=== PATIENT | male | born 1950 | race Caucasian/White ===

== ENCOUNTER 2025-06-09 15:08 | Inpatient (IN) | payer MEDICARE, MEDICAID ==
[~2025-06-09] VITALS: Ht 180.3 cm; Wt 80.8 kg
--- NOTE | 2025-06-09 15:43 | ED.PDOC ---
[place]. trauma (HPI) HPI Comments This is a 75 year old male presenting to the ED with chief complaint of left hip injury. Patient reports that while at [employer] today, when a worker had been helping him with his vehicle, the tailgate of his truck had hit his head and caused him to fall and injure his left hip. Patient relays that his left leg had undergone an previous injury before and he had been in physical therapy for it. Patient states he called his PT and was advised to come to the ED for evaluation of possible fracture. Patient notes he is able to ambulate with a walker. Patient denies any numbness, weakness, tingling, LOC, or dizziness. Chief Complaint: Fall Injury Time Seen by MD: 15:39 Reviewed notes: Nurses Notes, Medications, Allergies Allergies: Coded Allergies: NO KNOWN ALLERGIES (Unverified , 06/09/25) Information Source: Patient Mode of Arrival: Wheelchair Severity: Moderate Timing: Hours Duration: Since onset Prehospital treatment: None Location: (L) Hip Mechanism: Fall Past Medical History PAST MEDICAL HISTORY: Denies Surgical History: Denies all surgeries Family History Family History: Reviewed,noncontributory to illness Social History Smoker: Non-Smoker Alcohol: Denies ETOH Use Drugs: Denies Drug Use Lives In: Home Constitutional: denies: chills, diaphoresis, fatigue, fever, malaise, sweats, weakness, others EENTM: denies: blurred vision, double vision, ear bleeding, ear discharge, ear drainage, ear pain, ear ringing, eye pain, eye redness, hearing loss, mouth naima n, mouth swelling, nasal discharge, nose bleeding, nose congestion, nose pain, photophobia, tearing, throat pain, throat swelling, voice changes, others Respiratory: denies: cough, hemoptysis, orthopnea, SOB at rest, shortness of breath, SOB with excertion, stridor, wheezing, others Cardiovascular: denies: chest pain, dizzy spells, diaphoresis, Dyspnea on exertion, edema, irregular heart beat, left arm pain, lightheadedness, palpitations, PND, syncope, others Gastrointestinal: denies: abdomen distended, abdominal pain, blood streaked bowels, constipated, diarrhea, dysphagia, difficulty swallowing, hematemesis, melena, nausea, poor appetite, poor fluid intake, rectal bleeding, rectal pain, vomiting, others Genitourinary: denies: burning, dysuria, flank pain, frequency, hematuria, incontinence, penile discharge, penile sore, pain, testicle pain, testicle swelling, urgency, others Neurological: denies: dizziness, fainting, headache, left sided numbness, left sided weakness, numbness, paresthesia, pre-existing deficit, right sided numbness, right sided weakness, seizure, speech problems, tingling, tremors, weakness, others Musculoskeletal: reports: others (Left hip pain); denies: back pain, gout, joint pain, joint swelling, muscle pain, muscle stiffness, neck pain Integumetry: denies: bruises, change in color, change in hair/nails, dryness, laceration, lesions, lumps, rash, wounds, others Allergic/Immunocompromised: denies: Difficulty Healing, Frequent Infections, Hives, Itching, others Hematologic/Lymphatic: denies: anemia, blood clots, easy bleeding, easy bruising, swollen glands, others Endocrine: denies: excessive hunger, excessive sweating, excessive thirst, excessive urination, flushing, intolerance to cold, intolerance to heat, unexplained weight gain, unexplained weight loss, others Psychiatric: denies: anxiety, bipolar disorder, depression, hopeless, panic disorder, schizophrenia, sleepless, suicidal, others All Other Systems: Reviewed and Negative Physical Exam General Appearance: No Apparent Distress, Normal HEENT: Normal ENT Inspection, Pharynx Normal, TMs Normal Neck: Full Range of Motion, Non-Tender, Normal, Normal Inspection Respiratory: Chest Non-Tender, Lungs Clear, No Accessory Muscle Use, No Respiratory Distress, Normal Breath Sounds Cardiovascular: No Edema, No JVD, No Murmur, No Gallop, Normal Peripheral Pulses, Regular Rate/Rhythm Breast Exam: Deferred Gastrointestinal: No Organomegaly, Non Tender, No Pulsatile Mass, Normal Bowel Sounds, Soft Genitalia: Deferred Pelvic: Deferred Rectal: Deferred Extremities: No calf tenderness, Normal capillary refill, Normal inspection, Normal range of motion, Non-tender, No pedal edema Musculoskeletal : Location: Left Extremity Location: Hip Apperance: Tenderness Neurologic: Alert, utility porter II-XII nml as Tested, No Motor Deficits, Normal Affect, Normal Mood, No Sensory Deficits Cerebellar Function: Normal Reflexes: Normal Skin: Dry, Normal Color, Warm Lymphatic: No Adenopathy Was a procedure done? Was a procedure done?: No Differential Diagnosis Multiple Trauma: Fractures, Contusion X-Ray, Labs, Meds, VS Vital Signs Date Time Temp Pulse Resp B/P (MAP) Pulse Ox O2 Delivery O2 Flow Rate FiO2 06/09/25 15:11 98.0 65 16 133/65 99 98.0 X-Ray, Labs, Meds, VS Comment Patient will be admitted for pain control and subcapital femoral head fracture Patient placed in supine position Recommend ortho consult Time of 1ST Reevaluation: 16:38 Reevaluation 1ST: Unchanged Patient Education/Counseling: Diagnosis, Treatment Family Education/Counseling: No Family Present Departure 1 Departure Time of Disposition: 16:46 Impression: Primary Impression: Hip fracture, left Qualified Codes: S72.002A - Fracture of unspecified part of neck of left femur, initial encounter for closed fracture Disposition: ADMITTED INPATIENT Condition: Stable Critical Care Note Critical Care Time?: No Stability Stability form required: No Heart Score Heart Score: Heart Score Response (Comments) Value History N/A 0 EKG N/A 0 Age N/A 0 Risk Factors N/A 0 Troponin N/A 0 Total 0 I personally scribed for FAISAL GUZMAN ([email or web address]) on 06/09/25 at 15:43. Electronically submitted by Julian Hutchins ([email or web address]). FAISAL GUZMAN Jun 09, 2025 15:43
--- NOTE | 2025-06-09 16:17 | DVH ---
CLINICAL INDICATION: fall TECHNIQUE: 3 radiographic views of the left hip were obtained. Comparison: None FINDINGS/IMPRESSION: There is acute impacted subcapital fracture of the left femur. The femoral head remains within the acetabulum. Phleboliths within the pelvis.
[2025-06-09] MEDS: MORPHINE SULFATE 4 MG/ML SYR/VIAL IV ONE (17:10)
[2025-06-09] MEDS: ONDANSETRON HCL 4 MG/2 ML VIAL IV ONE (17:12)
[2025-06-09] MEDS: OXYCODONE W/ ACETAMINOPHEN 5/325MG TABLET PO ONE (19:10)
[2025-06-09] MEDS: HYDROmorphone HCL 2 MG/ML VL/or syr IV ONE (21:28)
[2025-06-09] MEDS ORDERED: MECLIZINE HCL 25 MG TAB PO PRN (21:45)
[2025-06-09] MEDS: SODIUM CHLORIDE 0.9% 1,000 ML IV ONE (21:45)
[2025-06-09 22:00] LABS: Urine Protein, UAD Negative (Negative)
--- NOTE | 2025-06-09 22:25 | DVHHPRES ---
History of Present Illness Resident Creating Document: BRIAN OCAMPO History of Present Illness Patient is a 75-year-old male with past medical history of vertigo, bradycardia, arrhythmia, and hyperlipidemia, presented to [facility] ED with complaint of left hip injury. The patient reports that earlier today, while at [facility], a worker was assisting him with his vehicle when the tailgate of his truck struck him on the head, causing him to fall and injure his left hip. He notes a recent history of a prior injury to the same leg after fall, admit to [facility] for where he had been undergoing physical therapy. After contacting his physical therapist, he was advised to come to the ED for evaluation of a possible fracture. On evaluation in the ED, patient is afebrile, blood pressure is 148/76 mmHg. Hip X-ray shows acute impacted subcapital fracture of the left femur. The patient was placed NPO, started on pain management and IV fluids. Patient is admitted for further evaluation and management. Past Medical History Vertigo, bradycardia, arrhythmia, hyperlipidemia Past Surgical History: None Family History: None Smoke: No ALCOHOL: none Drugs: None Review of Systems Review of Systems Eyes: No Pain, No Vision change, No Conjunctivae inflammation, No Eyelid inflammation, No Other, No Redness ENT: No Ear pain, No Ear discharge, No Nose pain, No Nose discharge, No Nose congestion, No Mouth pain, No Mouth swelling, No Throat pain, No Throat swelling, No Other Cardiovascular: No Chest Pain, No Palpitations, No Orthopnea, No Paroxysmal No Dyspnea, No Edema, No Lt Headedness, No Other Respiratory: No Cough, No Dry, No Shortness of breath, No SOB with exertion, No Wheezing, No Hemoptysis, No Pleuritic Pain, No Sputum, No Other Gastrointestinal: No Nausea, No Vomiting, No Abdominal Pain, No Diarrhea, No Constipation, No Melena, No Hematochezia, No Other Genitourinary: No Dysuria, No Frequency, No Incontinence, No Hematuria, No Retention, No Other Musculoskeletal: No other, No neck pain, No shoulder pain, No arm pain, No back pain, No hand pain, hip pain, leg pain, No foot pain Skin: No Rash, No Lesions, No Jaundice, No Bruising, No Other Allergies: Coded Allergies: NO KNOWN ALLERGIES (Unverified , 06/09/25) Medications Current Medications Medications Dose Ordered Sig/Ryan Route Start Time Stop Time Status Last Admin Dose Admin Meclizine HCl 12.5 mg [id number] PRN PO 06/09/25 21:45 Carisoprodol 350 mg BID PO 06/09/25 22:00 Acetaminophen/ Hydrocodone Bitart 1 tab Q4HPRN PRN PO 06/09/25 21:45 UNV Hydromorphone HCl 0.5 mg Q4HPRN PRN IV 06/09/25 21:45 UNV Exam Vital Signs Vital Signs Date Time Temp Pulse Resp B/P (MAP) Pulse Ox O2 Delivery O2 Flow Rate FiO2 06/09/25 21:28 81 19 181/72 06/09/25 20:52 99 06/09/25 15:11 98.0 98.0 Exam General Appearance: Cooperative. Well developed. Well nourished. NAD Head Exam: Normal inspection Neck Exam: Normal inspection. Non-tender. Normal alignment Pulmonary/Respiratory: Chest non-tender. Clear bilateral breath sounds, no crackles, no wheezing. Cardiovascular/Chest: Regular rate and rhythm. No murmurs. No JVD. Peripheral Pulses: 2+ Radial (R). 2+ Radial (L). 2+ Pedal (R). 2+ Pedal (L) Abdominal Exam: Normal bowel sounds. Soft. normal abdomen, no visible veins, Nontender. No hepatospenomegaly. No masses Ankle Exam: Negative ankle edema Lower extremities: Negative lower extremity edema. Musculoskeletal: Left hip with localized tenderness. No gross deformity noted. Ambulates with walker. Neuro/Mental Status: A&O x4. Coherent. Thoughts/Psych: Normal thought pattern. Appropriate mood and affect. Good judgement and insight Skin Exam: Normal inspection. Normal color. Warm. Dry Labs/Xrays Labs Test 06/09/25 21:11 Range/Units Urine Color Light-yellow Yellow Urine Clarity Clear Clear Urine pH 6.5 5.0-9.0 Urine Specific Baylis 1.009 1.001-1.035 Urine Protein Negative Negative Urine Ketones 2+ H Negative Urine Blood Negative Negative /uL Urine Nitrite Negative Negative Urine Bilirubin Negative Negative Urine Urobilinogen Normal Negative mg/dL Urine Leukocyte Esterase Negative Negative /uL Urine RBC 1 0 - 3 /hpf Urine Microscopic WBC < 1 0-3 /HPF Urine Squamous Epithelial Cells None seen <5 /hpf Urine Bacteria None seen None Seen /hpf Urine Hyaline Casts Few 0 - 2 /lpf Urine Glucose Normal Normal mg/dL SEPSIS Sepsis Screen Date sepsis recognized/suspect: Jun 09, 2025 Time Sepsis recognized/suspect: 1510 Recent Procedure: No On Antibiotic Therapy: No Respiratory Rate >20: No Heart Rate >90: No Temp<36 C (96.8 F) or >38.3 C: No SBP <90 or MAP <65 mmHG: No New Acute Mental Status Change: No Is the patient on CPAP, BIPAP,: No Physician Orders L Hip Complete Xray (06/09/25 15:33) * Orthopedic Consult (06/09/25 16:48) Admit (06/09/25 21:45) Allergies (06/09/25 21:45) Code Status (06/09/25 21:45) Complete Blood Count (06/09/25 21:45) Condition: Fair (06/09/25 21:45) Stat Ekg For Chest Pain (06/09/25 21:45) Notify Md Of Changes From Base (06/09/25 21:45) Fire Sprinkler Fitter For 24 Hours (06/09/25 21:45) Emergency Dysrhythmia Protocol (06/09/25 21:45) Rhythm Strips Once Every Shift (06/09/25 21:45) Sodium Chloride 0.9% (06/09/25 21:45) Hepatic Panel (06/09/25 21:45) Head Without Contrast (06/09/25 21:45) Meclizine Tablet (Antivert Tablet) (06/09/25 21:45) Carisoprodol Tablet (Soma Tablet) (06/09/25 22:00) PTPTT (06/09/25 21:45) Type And Screen (06/09/25 21:45) Chest Xray 1 View (06/09/25 21:45) Hydrocodone-Acet 5/325mg Tab (Partridge 5/32 (06/09/25 21:45) Hydromorphone Injection (Dilaudid Inject (06/09/25 21:45) Hydromorphone Injection (Dilaudid Inject (06/09/25 21:45) Npo Except For Medications (06/09/25 21:45) Npo (Nothing By Mouth) Diet (06/09/25 Breakfast) Magnesium (06/09/25 21:45) Comprehensive Metabolic Panel (06/09/25 21:45) Vital Signs Date Time Temp Pulse Resp B/P (MAP) Pulse Ox O2 Delivery O2 Flow Rate FiO2 06/09/25 21:28 81 19 181/72 06/09/25 20:52 74 17 148/76 (100) 99 06/09/25 20:51 72 17 141/78 (99) 98 06/09/25 20:50 85 18 182/81 (114) 98 06/09/25 19:07 64 16 162/81 (108) 100 06/09/25 17:10 62 20 102/69 06/09/25 15:11 98.0 65 16 133/65 99 98.0 Medications Medications Dose Ordered Sig/Ryan Route Start Time Stop Time Status Last Admin Dose Admin Hydromorphone HCl 0.5 mg ONCE ONCE IV 06/09/25 21:00 06/09/25 21:01 DC 06/09/25 21:28 0.5 MG Morphine Sulfate 4 mg ONCE ONCE IV 06/09/25 17:00 06/09/25 17:01 DC 06/09/25 17:10 4 MG Ondansetron HCl 4 mg ONCE ONCE IV 06/09/25 17:15 06/09/25 17:16 DC 06/09/25 17:12 4 MG Oxycodone/ Acetaminophen 1 tab ONCE ONCE PO 06/09/25 19:00 06/09/25 19:01 DC 06/09/25 19:10 1 TAB Assessment/Plan Assessment/Plan Left femoral fracture Intractable hip pain due to above Hip X-ray: There is acute impacted subcapital fracture of the left femur. The femoral head remains within the acetabulum. Phleboliths within the pelvis. Chest X-ray: The right costophrenic angles excluded from field of view. There is prominence of the interstitial markings. Unremarkable cardiomediastinal silhouette. No pleural effusion or pneumothorax. No acute osseous abnormality. pain management with Morphine, Partridge and Dilaudid Orthopedic consult IV NS 125 MLS/HR Acute mild traumatic brain injury, likely concussion Meningioma Head CT: No acute territorial infarct, intracranial hemorrhage, or mass effect. Age-related involutional changes. Chronic microvascular changes. 15 mm probable meningioma as detailed, which may be confirmed with a nonemergent contrast-enha nced MRI of the brain as clinically indicated. Hypertensive urgency Monitor BP Vertigo Meclizine 12.5 MG PO q12h prn Diet: NPO Goals of care: Full code, discussed for >30 minutes on 06/09/25 Plan discussed with patient Plan discussed with Dr. Garza Plan discussed with: Patient My Orders Orders - BRIAN OCAMPO RESIDENT Procedure Category Date Status Time Admit ADMIT 06/09/25 Transmitted 21:45 Allergies [facility] 06/09/25 In Process 21:45 Code Status CODE 06/09/25 Transmitted 21:45 Complete Blood Count LAB 06/09/25 Logged 21:45 Condition: Fair [facility] 06/09/25 In Process 21:45 Stat Ekg For Chest [facility] 06/09/25 In Process Pain 21:45 Notify Md Of Changes [facility] 06/09/25 In Process From Base 21:45 Fire Sprinkler Fitter For [facility] 06/09/25 In Process 24 Hours 21:45 Emergency Dysrhythmia [facility] 06/09/25 In Process Protocol 21:45 Rhythm Strips Once [facility] 06/09/25 In Process Every Shift 21:45 Sodium Chloride 0.9% PHA 06/09/25 In Process 21:45 Hepatic Panel LAB 06/09/25 Logged 21:[address] 06/09/25 Logged 21:45 Meclizine Tablet PHA 06/09/25 Logged (Antivert Tablet) 21:45 Carisoprodol Tablet PHA 06/09/25 Logged (Soma Tablet) 22:00 PTPTT LAB 06/09/25 Logged 21:45 Type And Screen BBK 06/09/25 Logged 21:45 Chest Xray 1 View XY 06/09/25 Logged 21:45 Hydrocodone-Acet PHA 06/09/25 Logged 5/325mg Tab (Partridge 21:45 Hydromorphone PHA 06/09/25 Logged Injection (Dilaudid 21:45 Hydromorphone PHA 06/09/25 Logged Injection (Dilaudid 21:45 Npo Except For DORY 06/09/25 In Process Medications 21:45 Npo (Nothing By DIET 06/09/25 Transmitted Mouth) Diet Breakfast Magnesium LAB 06/09/25 Logged 21:45 Comprehensive LAB 06/09/25 Logged Metabolic Panel 21:45 Date of Service: Jun 09, 2025 Billing Provider: JESSICA GARZA MD Common Visit Codes: 90044-[id number] INP/OBS CARE (HIGH) Secondary Visit Codes: [id number] CARE PLAN 30 MINUTES BRINA OCAMPO RESIDENT Jun 09, 2025 22:25
[2025-06-09 22:51] LABS: Hematocrit 41.9 % (41.0-53.0); Hemoglobin 14.2 g/dL (13.5-17.5); Mean Corpuscular Hemoglobin 33.6 pg (28.0-32.0); Mean Corpuscular Volume 99.1 fL (80.0-100.0); Nucleated Red Blood Cells % 0.0 %
[2025-06-09 23:09] LABS: Alanine Aminotransferase 38 U/L (7-40); Albumin 4.1 g/dL (3.2-4.8); Alkaline Phosphatase 72 U/L (46-116); BUN/Creatinine Ratio 13.7 (10.0-20.0); Bilirubin, Direct 0.3 mg/dL (<0.3); Bilirubin, Total 1.0 mg/dL (0.2-1.0); Blood Urea Nitrogen 17 mg/dL (9-23); Calcium 8.9 mg/dL (8.7-10.4); Carbon Dioxide 25 mmol/L (20-31); Glucose 94 mg/dL (74-106); Magnesium 2.4 mg/dL (1.6-2.6); Potassium 4.3 mmol/L (3.5-5.1); Sodium 145 mmol/L (136-145); Total Protein 6.8 g/dL (5.7-8.2)
[2025-06-09 23:18] LABS: INR 1.12 (0.9-1.15); Partial Thromboplastin Time 33.9 SEC (24.5-34.5); Prothrombin Time 11.7 sec (9.3-11.8)
[2025-06-09 23:19] LABS: Anion Gap 10 (5-15)
[2025-06-09 23:20] LABS: Chloride 110 mmol/L (98-107)
[2025-06-10] VITALS (8 sets, daily range): BP systolic 117–155; BP diastolic 60–71; PULSE 63–79; RESP 17–19; TEMP 98.7–100.5; O2SAT 91–95
--- NOTE | 2025-06-10 00:17 | DVH ---
EXAM: CT HEAD WITHOUT CONTRAST INDICATION: head trauma TECHNIQUE: CT of the head without intravenous contrast. Radiation Dose : 1. Head: CT Dose: CTDI volume is 59.04 mGy. Dose-length product is 1064.46 mGy*cm The dose indicators for CT are the volume Computed Tomography (CT) Dose Index (CTDIvol) and the Dose Length Product (DLP), and are measured in units of mGy and mGy-cm, respectively. These indicators are not patient dose, but values generated from the CT scanner acquisition factors. The report includes radiation exposure data for exposures received during this examination. COMPARISON: None FINDINGS: No acute territorial infarct, intracranial hemorrhage, or mass effect. 15 mm partially calcified extra-axial mass contouring the right posterior cerebral convexity. There are global involutional changes with compensatory prominence of the ventricles and sulci. Patchy periventricular and subcortical white matter hypoattenuation is nonspecific but may be related to small vessel ischemic disease. The orbits are normal. Polyp versus retention cyst within the left maxillary antrum. The osseous structures are unremarkable. IMPRESSION: 1. No acute territorial infarct, intracranial hemorrhage, or mass effect. 2. Age-related involutional changes. Chronic microvascular changes. 3. 15 mm probable meningioma as detailed, which may be confirmed with a nonemergent contrast-enhanced MRI of the brain as clinically indicated. Radiation optimization: All CT scans at this facility use at least one of these dose optimization techniques: automated exposure control mA and/or kV adjustment per patient size (includes targeted exams where dose is matched to clinical indication) or iterative reconstruction.
[2025-06-10] MEDS: CARISOPRODOL 350 MG TAB PO SCH (00:40)
--- NOTE | 2025-06-10 01:01 | DVH ---
CHEST RADIOGRAPH Indication: chest pain Technique: Single frontal view of the chest was obtained Comparison: None FINDINGS/IMPRESSION: The right costophrenic angles excluded from field of view. There is prominence of the interstitial markings. Unremarkable cardiomediastinal silhouette. No pleural effusion or pneumothorax. No acute osseous abnormality.
[2025-06-10] MEDS: HYDROmorphone HCL 2 MG/ML VL/or syr IV ONE (01:28)
[2025-06-10] MEDS: HYDROmorphone HCL 2 MG/ML VL/or syr IV PRN (09:38)
--- NOTE | 2025-06-10 13:14 | DVHINCON2 ---
Consult Note Consult Consult Note History of Present Illness: The patient is an elderly individual who presents with a one-day history of left hip pain following a ground-level fall. The patient was brought to the Emergency Department by EMS. X-rays of the left hip were obtained, revealing a left subcapital femoral neck fracture. The patient denies any preceding dizziness, syncope, or head injury. Pain is localized to the left groin region and worsens with movement. No distal numbness or tingling reported. Past Medical History: Irregular arrhythmia under care of Dr. Adam (Cardiology) No known history of diabetes mellitus, smoking, or anticoagulant use Medications: None reported related to anticoagulation Allergies: No known drug allergies (NKDA) Physical Examination: General: Alert, oriented, in mild distress secondary to pain. Left Lower Extremity: Inspection: No open wounds or deformity noted. Palpation: Tenderness over the left groin and proximal thigh. Range of Motion: Painful and limited at the left hip; knee and ankle range of motion full and intact. Neurovascular: Grossly intact. Distal pulses palpable. Capillary refill <2 seconds. Sensation intact to light touch. Other Extremities: Within normal limits. Imaging: X-ray of Left Hip: Subcapital femoral neck fracture identified. CT Hip: Ordered for further evaluation and surgical planning. Echocardiogram: Ordered for preoperative cardiac clearance. Assessment: Left subcapital femoral neck fracture, status post ground-level fall. Plan: NWB till surgery 1. Surgical Management: Proceed with operative perc pinning fixation versus arthroplasty. Planned procedures: Percutaneous pinning versus hemiarthroplasty versus total hip arthroplasty (pending CT findings and intraoperative assessment). 2. Preoperative Orders: NPO after midnight. Cardiac clearance with echocardiogram due to arrhythmia history. Pain management as per protocol. 3. Consults: Discussed case with Dr. Leary (Attending Orthopedic Surgeon). 4. Informed Consent: Risks, benefits, and alternatives discussed with the patient, who verbalized understanding and consented to surgery. Plan discussed with: Patient, Other (bedside nurse) Visit Coding Surgery Date of Service if different f: Jun 10, 2025 Billing Provider: ROBER REYNOSO Surgery Visit Codes: 42905 - INP CONSULT <55 MIN ROBER REYNOSO Jun 10, 2025 13:14
--- NOTE | 2025-06-10 14:58 | DVH ---
EXAM: CT CT L HIP WITH OUT CONTRAST HISTORY: left hip injury COMPARISON: XY L HIP COMPLETE XRAY on DOS: 06/09/25 TECHNIQUE: Noncontrast axial CT images of the left hip were performed. Sagittal and coronal reformatted images were obtained. This CT exam was performed using one or more of the following dose reduction techniques: Automated exposure control, adjustment of the mA and/or kV according to patient size, or use of iterative reconstruction technique. Radiation Dose Information: CT Dose: CTDI volume is 16.35 mGy. Dose-length product is 405.91 mGy*cm. FINDINGS: Slight bony demineralization. Normal alignment of the left hip. There is a mildly impacted fracture of the mid left femoral neck with a fracture line extending into the subcapital left femoral neck. There is coxa vera angulation of the proximal left femur. Very mild soft Tissue swelling about the proximal left femur. The Muscle bundles about the left hip are intact. Dystrophic calcifications in the prostate gland. Urinary bladder is mildly distended. Calcified athero sclerosis is present. Small fat containing left inguinal hernia. IMPRESSION: 1. Impacted fracture of the mid left femoral neck with fracture line extending into the subcapital left femoral neck. 2. Coxa vera angulation of the proximal left femur. 3. Very mild soft tissue swelling about the proximal left femur.
[2025-06-10 18:37] LABS: Benzodiazephine Screen, Urine Pos (NEGATIVE); Cannabinoid Screen, Urine Pos (NEGATIVE); Opiate Scree,Urine Neg (NEGATIVE)
[2025-06-10 18:48] LABS: Amphetamine Screen, Urine Neg (NEGATIVE); Barbiturate Scree,Urine Neg (NEGATIVE); Cocaine Screen, Urine Neg (NEGATIVE); Phencyclidine Screen, Urine Neg (NEGATIVE)
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
[2025-06-11] VITALS (8 sets, daily range): BP systolic 120–140; BP diastolic 71–78; PULSE 55–84; RESP 12–18; TEMP 97.4–98.9; O2SAT 93–99
[2025-06-11] MEDS: HYDROcodone-ACET 5/325MG TAB PO PRN (00:53)
[2025-06-11] MEDS: ceFAZolin 2 GM/D5W50ml 50 ML IV ONE (07:54)
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
[2025-06-11] MEDS ORDERED: fentaNYL CITRATE 5 ML ONE (08:19)
[2025-06-11] MEDS: BUPIVACAINE 0.25% INJ 50ML VIAL ONE (08:25)
[2025-06-11] MEDS ORDERED: ONDANSETRON HCL 4 MG/2 ML VIAL ONE (08:45)
[2025-06-11] MEDS: ROPIVACAINE 0.5% (5MG/ML) 20ML AMPULE IJ ONE (08:52)
--- NOTE | 2025-06-11 09:09 | DVHOP2 ---
Operative Report - 2 Report Details Date: 06/11/25 Preop Diagnosis: Left femoral neck fracture, valgus impacted Postop Diagnosis: same Surgeon: Jordan Sin MD Supervisor Bridges And Buildings: none Anesthesiologist: Dr Sparks Anesthesia: General Drains: none Implant: three cannulated screws 6.5 Consent: The patient was informed of the risks and benefits of the procedure. These include but are not limited to complications of anesthesia, postoperative infection, incomplete relief of symptoms, recurrence of symptoms, damage to blo od vessels, nerves and tendons, deep venous thrombosis, pulmonary embolism and possible need for repeat surgery in the future. Complications: none Estimated Blood Loss: 5cc Fluids: 250 cc crystalloid Findings: Left hip, stable, impacted femoral neck fracture Indications for Surgery: femoral neck fracture with risk of displacement Name of Procedure Performed Open reduction internal fixation of left femoral neck fracture with percutaneous pinning Procedure Details Procedure Details: Patient brought to the operating room given Ancef 1 g IV piggyback preoperatively given general anesthetic Dr. Sparks with no induction complications prep and drape are placed onto a radiolucent table prep and drape the lateral aspect of left hip buttock and proximal thigh time-out performed comprehension left side correct site percutaneous pinning of left femoral neck fracture correct procedure after review of operative consent history and physical my initials on left buttock all long-term operating room agreeing the left side correct site percutaneous pinning correct procedure C-arm fluoro placed over hip guide pin placed over anterior skin and marking of alignment of guide pin and inferior calcar guide pin placed 1st center on lateral and inferior calc ar on AP then to proximal pins placed one anterior one posterior and again C-arm fluoro showed good overall placement on C-arm fluoro pins measured in length to be 90 80 and 90 mm respectively lateral cortex was reamed and screws were placed down to cortex C-arm fluoro then taken showing good placement of screws good stabi antonette no drains specimens complications Specimen: none Condition Stable Disposition Still a Patient JORDAN SIN MD Jun 11, 2025 09:09
[2025-06-11] MEDS ORDERED: ONDANSETRON HCL 4 MG/2 ML VIAL IV PRN ×2 (09:15)
[2025-06-11] MEDS ORDERED: BISACODYL 5 MG EC TAB PO PRN (09:15)
[2025-06-11] MEDS ORDERED: NITROGLYCERIN 0.4 MG SL TAB SL PRN (09:15)
[2025-06-11] MEDS ORDERED: hydrALAZINE HCL 20 MG/ML VL IV PRN (09:15)
[2025-06-11] MEDS ORDERED: ACETAMINOPHEN IV 1000 MG/100ML (10MG/ML) IV PRN (09:15)
[2025-06-11] MEDS: ceFAZolin 1GM/50ML 50 ML IV ONE (09:15)
[2025-06-11] MEDS: LACTATED RINGER'S 1,000 ML IV SCH (09:15)
--- NOTE | 2025-06-11 09:25 | ECG ---
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
[2025-06-11] MEDS ORDERED: BUPIVACAINE/DEXTROSE MPF 0.75% 2 ML AMP IT ONE (09:38)
[2025-06-11] MEDS ORDERED: MEPERIDINE HCL (25 MG/ML) 1ML VIAL ONE (09:46)
[2025-06-11] MEDS: HYDROmorphone HCL 2 MG/ML VL/or syr IV PRN (09:48)
[2025-06-11] MEDS: DOCUSATE SOD 100 MG CAP PO SCH (10:00)
[2025-06-11] MEDS ORDERED: ENOXAPARIN SOD 30 MG/0.3 ML SYRINGE SC SCH (10:00)
[2025-06-11] MEDS: MEPERIDINE HCL (25 MG/ML) 1ML VIAL IV PRN (10:07)
[2025-06-11] MEDS ORDERED: MORPHINE SULF PF 5 MG/10 ML VIAL ONE (10:20)
--- NOTE | 2025-06-11 10:33 | DVH ---
C-ARM FLUOROSCOPY: PROCEDURE: Left hip ORIF FLUOROSCOPY TIME: 15.3 sec DAP: 1.46 mgy FINDINGS: Spot intraoperative C arm radiographs demonstrating left hip ORIF. IMPRESSION: Please refer to surgical report for detailed findings.
--- NOTE | 2025-06-11 10:33 | DVH ---
C-ARM FLUOROSCOPY: PROCEDURE: Left hip ORIF FLUOROSCOPY TIME: 15.3 sec DAP: 1.46 mgy FINDINGS: Spot intraoperative C arm radiographs demonstrating left hip ORIF. IMPRESSION: Please refer to surgical report for detailed findings.
--- NOTE | 2025-06-11 10:53 | DVHSR ---
APPROVED REPORT EXAM: Two-dimensional and M-mode echocardiogram with Doppler and color Doppler. Blood Pressure: 125/63 mmHg INDICATION Per MD orders RISK FACTORS Height: 5'11", Weight: 175 DIMENSIONS LVDd 3.5 (3.8-5.7cm) LA (2D) 3.2 (1.9-4.0cm) Aortic Root 3.5 (2.0-3.7cm) LVDs 2.3 (2.5-4.0cm) LA (MM) (1.9-4.0cm) Aortic Cusp Exc 1.1 (1.5-2.0cm) EF (%) 60.0 (55-70%) Rt. Atrium 3.2 (1.9-4.0cm) Asc. Aorta cm IVSd 1.1 (0.7-1.1cm) RV (D) (1.8-2.4cm) PWd 1.0 (0.7-1.1cm) Mitral Valve Mitral Mitral Stenosis E wave 1.16m/s MV Mean GR. mmHg A wave 1.23m/s MV Peak GR. mmHg E/A ratio 0.9 2D MVA cm2 DECEL Time 288ms PRESS 1/2 Time ms Aortic Valve Aortic Valve Aortic Stenosis V1 1.24m/s AO Mean GR. 19mmHg V2 3.07m/s AO Peak GR. 38mmHg LVOT Diameter 1.9 (1.8-2.4cm) Doppler FLACO 1.14cm2 AI P 1/2 Time 470.79ms Pulmonic Valve V2 1.61m/s Tricuspid Valve TR Velocity 3.80m/s RVSP 61mmHg Other Information Quality : Limited Rhythm : Technically limited study due to body habitus, patient lying flat due to broken hip. Conclusion MODERATE DEGREE LVH AND MILD LV DIASTOLIC DYSFUNCTION LV EF IS 65% AND IS NORMAL HEAVILY CALCIFIED AORTIC LEAFLETS PEAK AORTIC GRADIENT IS 38 MM OF HG AND MEAN GRADIENT IS 19 MM OF HG AORTIC VALVE AREA IS 1.1 CM SQAURE MODERATE DEGREE AORTIC REGURGITATION IT IS MODERATELY SEVERE AORTIC STENOSIS NO EFFUSION
[2025-06-11] MEDS ORDERED: PROPOFOL 10 MG/ML 20 ML IV ONE (10:58)
[2025-06-11] MEDS: CLINDAMYCIN 600MG IV 50 ML IV SCH (12:07)
[2025-06-11] MEDS: ceFAZolin 1GM/50ML 50 ML IV SCH ×2 (14:56→20:40)
[2025-06-11] MEDS: ALPRAZolam 0.5 MG TAB PO ONE (17:01)
[2025-06-11] MEDS ORDERED: MULT-1018 PO (17:17)
[2025-06-11] MEDS ORDERED: MECL12.586 PO (17:17)
[2025-06-11] MEDS ORDERED: CARI-277 PO (17:17)
[2025-06-11] MEDS ORDERED: HYDR-3682 PO (17:17)
[2025-06-11] MEDS ORDERED: ALPR0.5T PO (17:17)
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
[2025-06-12] VITALS (8 sets, daily range): BP systolic 111–153; BP diastolic 60–86; PULSE 53–82; RESP 17–19; TEMP 97.7–99; O2SAT 97–100
--- NOTE | 2025-06-12 10:10 | DVHPN2 ---
Date of Progress Note Date of Progress Note Date of Progress Note: 06/12/25 Date of Admission Date of Admission Date of Admission: Date of Admission: Jun 09, 2025 at 21:45 Overnight Events Overnight events Overnight Events Pt geoffrey POs , able to void, geoffrey pain Family History Family History Family History: FH: ovarian cancer G8 MOTHER Ischemic heart disease G8 FATHER Allergies: Coded Allergies: Bupivacaine (Verified Allergy, Unknown, 06/11/25) Home Meds Reported Medications Carisoprodol (Soma) 350 Mg Tab, 350 MG PO DAILY, TAB 06/11/25 Multiple Vitamin (Multivitamins) Tab, 1 TAB PO DAILY, #90 TAB 3 Refills 06/11/25 Alprazolam (Xanax) 0.5 Mg Tb, 1 TAB PO BID PRN for ANXIETY, #30 TAB 06/11/25 Meclizine Hcl (Meclizine Hcl) 12.5 Mg Tab, 12.5 MG PO BIDP PRN for DIZZINESS for 30 Days, MG 06/11/25 Hydroxyzine Hcl (Hydroxyzine Hcl) 25 Mg Tab, 25 MG PO BID PRN for FOR ITCHING for 30 Days, MG 06/11/25 Current Medications Current Medications Medications (Trade) Dose Ordered Sig/Ryan Route PRN Reason Start Time Stop Time Status Last Admin Clindamycin Phosphate 50 ml @ 50 mls/hr Q6HR IV 06/11/25 12:00 06/12/25 00:59 DC 06/11/25 23:44 Cefazolin Sodium 50 ml @ 100 mls/hr Q6HR IV 06/11/25 14:30 06/11/25 20:24 DC 06/11/25 14:56 Cefazolin Sodium 50 ml @ 100 mls/hr Q6H IV 06/11/25 20:30 06/12/25 02:59 DC 06/12/25 03:00 Physical Examination General Examination: Last Vital sign Vital Signs Date Time Temp Pulse Resp B/P (MAP) Pulse Ox O2 Delivery O2 Flow Rate FiO2 06/12/25 08:49 97.7 53 18 138/68 (91) 99 97.7 06/11/25 20:00 Nasal Cannula* 2 28 General: General: No apparent distress, appears comfortable. Cooperative. Extremities: Left hip well healed incision, no drainage NVI Neurological Examination: Neurological Examination: Mental Status: Cranial Nerves: Motor Examination: Reflexes: Sensory: Coordination: Gait: Labs: Labs: Laboratory Tests Test 06/09/25 21:11 06/09/25 22:29 06/10/25 08:26 Range/Units Urine Color Light-yellow Yellow Urine Clarity Clear Clear Urine pH 6.5 5.0-9.0 Urine Specific [place] 1.009 1.001-1.035 Urine Protein Negative Negative Urine Ketones 2+ H Negative Urine Blood Negative Negative /uL Urine Nitrite Negative Negative Urine Bilirubin Negative Negative Urine Urobilinogen Normal Negative mg/dL Urine Leukocyte Esterase Negative Negative /uL Urine RBC 1 0 - 3 /hpf Urine Microscopic WBC < 1 0-3 /HPF Urine Squamous Epithelial Cells None seen <5 /hpf Urine Bacteria None seen None Seen /hpf Urine Hyaline Casts Few 0 - 2 /lpf Urine Glucose Normal Normal mg/dL Urine Opiates Screen Neg NEGATIVE Urine Fentanyl Screen Neg NEGATIVE Urine Barbiturates Screen Neg NEGATIVE Urine Phencyclidine Screen Neg NEGATIVE Urine Amphetamines Screen Neg NEGATIVE Urine Benzodiazepines Screen Pos NEGATIVE Urine Cocaine Screen Neg NEGATIVE Urine Cannabinoids Screen Pos NEGATIVE White Blood Count 11.6 H 4.4-10.8 10^3/uL Red Blood Count 4.22 L 4.5-5.90 10^6/uL Hemoglobin 14.2 13.5-17.5 g/dL Hematocrit 41.9 41.0-53.0 % Mean Corpuscular Volume 99.1 80.0-100.0 fL Mean Corpuscular Hemoglobin 33.6 H 28.0-32.0 pg Mean Corpuscular Hemoglobin Concent 33.9 32.0-36.0 g/dL Red Cell Distribution Width 13.4 11.8-14.3 % Platelet Count 248 140-450 10^3/uL Mean Platelet Volume 6.6 L 6.9-10.8 fL Neutrophils (%) (Auto) 65.0 37.0-80.0 % Lymphocytes (%) (Auto) 24.5 10.0-50.0 % Monocytes (%) (Auto) 8.4 0.0-12.0 % Eosinophils (%) (Auto) 0.9 0.0-7.0 % Basophils (%) (Auto) 1.2 0.0-2.0 % Neutrophils # (Auto) 7.6 1.6-8.6 10 ^3/uL Lymphocytes # (Auto) 2.9 0.4-5.4 10 ^3/uL Monocytes # (Auto) 1.0 0-1.3 10 ^3/uL Eosinophils # (Auto) 0.1 0-0.8 10 ^3/uL Basophils # (Auto) 0.1 0-0.2 10 ^3/uL Nucleated Red Blood Cells 0.0 % Prothrombin Time 11.7 9.3-11.8 sec Prothrombin Time INR 1.12 0.9-1.15 Activated Partial Thromboplast Time 33.9 24.5-34.5 SEC Sodium Level 145 136-145 mmol/L Potassium Level 4.3 3.5-5.1 mmol/L Chloride Level 110 H 98-107 mmol/L Carbon Dioxide Level 25 20-31 mmol/L Anion Gap 10 5-15 Blood Urea Nitrogen 17 9-23 mg/dL Creatinine 1.24 0.700-1.30 mg/dL Glomerular Filtration Rate Calc 60 >90 mL/min BUN/Creatinine Ratio 13.7 10.0-20.0 Serum Glucose 94 74-106 mg/dL Calcium Level 8.9 8.7-10.4 mg/dL Magnesium Level 2.4 1.6-2.6 mg/dL Total Bilirubin 1.0 0.2-1.0 mg/dL Direct Bilirubin 0.3 <0.3 mg/dL Aspartate Amino Transferase (AST) 29 13-40 U/L Alanine Aminotransferase (ALT) 38 7-40 U/L Alkaline Phosphatase 72 46-116 U/L Total Protein 6.8 5.7-8.2 g/dL Albumin 4.1 3.2-4.8 g/dL Hemoglobin A1c 5.3 <5.7 % A1C B-Type Natriuretic Peptide 113.27 0-100 pg/mL Vitamin B12 Level 860 211-911 pg/mL Vitamin D 25-Hydroxy 42.0 30.0-100 ng/mL Thyroid Stimulating Hormone (TSH) 1.94 0.55-4.78 uIU/mL Assessment/Plan Assessment/Plan Assessment and Plan:Hitesh Womack is a 75 year old male POD 1 s/p perc pin left hip femoral neck fracture 1) social work for 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
[2025-06-12] MEDS: HYDROcodone-ACET 10/325MG TAB PO PRN (12:25)
[2025-06-12] MEDS: Juven Fruit Punch Powder PACKET 28.8gm PO SCH (15:00)
[2025-06-12] MEDS: Ensure HIGH Protein Vanilla 8oz Bottle PO SCH (18:00)
--- NOTE | 2025-06-12 18:05 | DVHPNRES ---
Progress Note Date Seen: Jun 12, 2025 Resident Creating Document: NAYE LOVETT RESIDENT Has the PT tested + for MRSA If YES, has PT been informed?: No Medical Necessity Reason Pt with a Central, PICC or Fol: No Subjective Review of Systems Hitesh Quiroz is a 75-year-old male, with past medical history of vertigo, bradycardia, and hyperlipidemia. The patient presented to [facility] ED with the complaint of 1 day of a ground level fall and left hip injury. 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 This prompted her visit to the ED. The patient denies lost of conciseness, trauma to other part of his body, nausea, vomit, chest pain, headache, abdominal pain or other symptom. On further questioning, he reports a recent history of a prior injury to the same leg after a mechanica ground level fall, admit to [facility] for where he had been undergoing physical therapy. After contacting his physical therapist, he was advised to come to the ED for evaluation of a possible fracture. On evaluation in the ED, patient is afebrile, blood pressure is 148/76 mmHg. Hip X-ray shows acute impacted subcapital fracture of the left femur. The patient was placed NPO, started on pain management and IV fluids. Patient was admitted for further evaluation and management. Past Medical History: Vertigo, bradycardia, hyperlipidemia Past Surgical History: None, Family History: None Social History: Smoke: No. Alcohol: none. Drugs: None Hospital course: On 06/10/25, the patient was examined and evaluated at the bedside, vital signs, labs, and chart was reviewed. The patient reports feeling pain in the left hip the pain is 10/10, reduce only with analgesia. 9/10, gets worse with movement. Left Hip CT scan showed: Impacted fracture of the mid left femoral neck with fracture line extending into the subcapital left femoral neck. Coxa vera angulation of the proximal left femur. Very mild soft tissue swelling about the proximal left femur. Orthopedic team is on board, they recommend surgical management as follow: operative perc pinning fixation versus arthroplasty. Planned procedures: Percutaneous pinning versus hemiarthroplasty versus total hip arthroplasty (pending CT findings and intraoperative assessment). Surgery scheduled for tomorrow. Patient will start NPO at midnight. We will continue providing follow-up for this patient. On 06/11/25, the patient was examined and evaluated at the bedside, vital signs, labs, and chart was reviewed. vital signs are within normal limits, labs are unremarkable. The patient went to surgery today, a percutaneous pinning of the left femoral neck fracture was performed. The patient came back from the operating room alert and stable, he reports pain 9/10, specially with movement. A new consult for PT evaluation was placed for SNF, the patient reports he does not want to go to SNF due to he lost her mother and sister in one and he has a bad memories about it; also, he needs to take care of his pets. He prefers home-health for physical therapy. I explained to the benefits of SNF and the importance to avoid the risk of a new fall; the patient agree to understand, but refused SNF placement option. A new PT consult was placed for home-health for PT. We will continue following up this patient progress. On 06/12/25, the patient was examined and evaluated at the bedside, vital signs, labs, and chart was reviewed. vital signs are within normal limits, labs are unremarkable. The patient on his 1st day post percutaneous pinning of the left femoral neck fracture. The patient reports pain 7/10, specially with movements. The PT consult recommended Home Health for PT. The patient. We will continue following up this patient progress. Review of Systems Eyes: No Pain, No Vision change, No Conjunctivae inflammation, No Eyelid inflammation, No Other, No Redness ENT: No Ear pain, No Ear discharge, No Nose pain, No Nose discharge, No Nose congestion, No Mouth pain, No Mouth swelling, No Throat pain, No Throat swelling, No Other Cardiovascular: No Chest Pain, No Palpitations, No Orthopnea, No Paroxysmal No Dyspnea, No Edema, No Lt Headedness, No Other Respiratory: No Cough, No Dry, No Shortness of breath, No SOB with exertion, No Wheezing, No Hemoptysis, No Pleuritic Pain, No Sputum, No Other Gastrointestinal: No Nausea, No Vomiting, No Abdominal Pain, No Diarrhea, No Constipation, No Melena, No Hematochezia, No Other Genitourinary: No Dysuria, No Frequency, No Incontinence, No Hematuria, No Retention, No Other Musculoskeletal: No other, No neck pain, No shoulder pain, No arm pain, No back pain, No hand pain, hip pain, leg pain, No foot pain Skin: No Rash, No Lesions, No Jaundice, No Bruising, No Other Allergies: no known allergies. Objective vital signs Vital Sign Date Time Temp Pulse Resp B/P (MAP) Pulse Ox O2 Delivery O2 Flow Rate FiO2 06/12/25 16:42 99.0 59 17 153/79 (103) 100 99.0 06/12/25 08:00 Nasal Cannula* 2 28 Total Intake and Output 06/11/25 06/11/25 06/12/25 15:00 23:00 07:00 Intake Total 700 ml 850 ml 500 ml Output Total 150 ml 220 ml 700 ml Balance 550 ml 630 ml -200 ml medications Current Medications Medications Dose Ordered Sig/Ryan Route Start Time Stop Time Status Last Admin Dose Admin Meclizine HCl 12.5 mg [id number] PRN PO 06/09/25 21:45 Carisoprodol 350 mg BID PO 06/09/25 22:00 06/11/25 22:17 350 MG Hydromorphone HCl 0.5 mg Q4HPRN PRN IV 06/09/25 21:45 06/12/25 06:58 0.5 MG Lactated Ringer's 1,000 ml @ 100 mls/hr Q10H IV 06/11/25 09:15 06/11/25 09:15 100 MLS/HR Ondansetron HCl 4 mg Q6HP PRN IV 06/11/25 09:15 Docusate Sodium 100 mg Q12HR PO 06/11/25 10:00 Bisacodyl 5 mg Q12HP PRN PO 06/11/25 09:15 Nitroglycerin 0.4 mg Q5MINP PRN SL 06/11/25 09:15 Acetaminophen/ Hydrocodone Bitart 1 tab Q4HP PRN PO 06/12/25 11:15 06/12/25 12:25 1 TAB Enteral Nutritional Formula 28.8 gm BIDBM PO 06/12/25 15:00 Enteral Nutritional Formula 27.5 gm DAILY PO 06/13/25 10:00 Enteral Nutritional Formula 240 ml TIDWM PO 06/12/25 18:00 Examination General Appearance: In mild distress. Cooperative. Well developed. Well nourished. Head Exam: Normal inspection, no lesions or open wounds. Neck Exam: Normal inspection. Non-tender. Normal alignment Pulmonary/Respiratory: Chest non-tender. Clear bilateral breath sounds, no crackles, no wheezing. Cardiovascular/Chest: Regular rate and rhythm. No murmurs. No JVD. Peripheral Pulses: 2+ Radial (R). 2+ Radial (L). 2+ Pedal (R). 2+ Pedal (L) Abdominal Exam: Normal bowel sounds. Soft. normal abdomen, no visible veins, Nontender. No hepatospenomegaly. No masses Ankle Exam: Negative ankle edema Lower extremities: Negative lower extremity edema. Musculoskeletal: Post surgical dressing, Left hip with localized tenderness, reduced ROM due to pain, no leg miss-alignment. No gross deformity noted. Neuro/Mental Status: A&O x3. Coherent. Thoughts/Psych: Normal thought pattern. Appropriate mood and affect. Skin Exam: Normal inspection. Normal color. Warm. Dry laboratory and microbiology Laboratory Tests 06/09/25 22:29 Test 06/09/25 22:29 Range/Units Serum Glucose 94 74-106 mg/dL Problem List/Assessment/Plan Problem List/Assessment/Plan #Acute left femoral fracture # Acute Intractable hip pain due acute impacted subcapital fracture of the left femur. Hip X-ray: There is acute impacted subcapital fracture of the left femur. The femoral head remains within the acetabulum. Phleboliths within the pelvis. Chest X-ray: The right costophrenic angles excluded from field of view. There is prominence of the interstitial markings. Unremarkable cardiomediastinal silhouette. No pleural effusion or pneumothorax. No acute osseous abnormality. pain management with Morphine, Gordon and Dilaudid Orthopedic consult: completed, Surgery performed on 06/11/25 1St day post surgery. PT consult; Home Health was recommended. Social Service consult for home health. #Acute mild traumatic brain injury, likely concussion #Meningioma Head CT: No acute territorial infarct, intracranial hemorrhage, or mass effect. Age-related involutional changes. Chronic microvascular changes. 15 mm probable meningioma as detailed, which may be confirmed with a nonemergent contrast-enhanced MRI of the brain as clinically indicated. F/U as an out patient. #Chronic positional paroxysmal vertigo Meclizine 12.5 MG PO q12h prn #Chronic cannabis usage Counseling about drug cessation .>10 min Diet: Regular diet DVT prophylaxis Goals of care discussed with the patient > 35 min. Discussed plan of care with Dr. Garza Code status: Full code PCP: Dr. Alberto, ( Patient's cardiology and PCP) Plan discussed with: Patient, the patient agrees with the current plan. Plan discussed with: Patient My Orders My Orders Orders - NAYE LOVETT RESIDENT Procedure Category Date Status Time Pt Request For Service PT 06/12/25 Logged 08:09 Dietary Cons For NOURISH 06/12/25 Transmitted Malnutrition 08:06 Hydrocodone-Acet PHA 06/12/25 In Process 10/325mg Tab (Gordon 11:15 Nutritional PHA 06/12/25 In Process Supplements (Jessee 15:00 Nutritional PHA 06/13/25 In Process Supplements (Jessee 10:00 Nutritional PHA 06/12/25 In Process Supplements (Ensure 18:00 Diet DORY 06/12/25 In Process 15:00 * Bobbin Painter CONS 06/12/25 Transmitted Consult Regular Diet DIET 06/12/25 Transmitted Dinner Dietary Evaluation Review Comments: [place] likes/dislikes: No beans of any knind, no meat or chicken. Offer Egg and fish as protein, like pasta, soups and pureed fruit Offer Ensure High Protein 240ml TID Offer Jessee bid Expected Outcomes/Goals: Improved PO intake, healed femoral neck Date of Service: Jun 12, 2025 Billing Provider: JESSICA GARZA MD Common Visit Codes: [id number] INP/OBS CARE(HIGH) NAYE LOVETT RESIDENT Jun 12, 2025 18:05
[2025-06-13 01:00] VITALS: BP 101/73; PULSE 64; RESP 19; TEMP 98; O2SAT 99
[2025-06-13] MEDS: ALPRAZolam 0.5 MG TAB PO ONE ×2 (03:41→11:33)
[2025-06-13] MEDS: LORATADINE 10 MG TAB PO ONE (03:42)
[2025-06-13 04:58] VITALS: BP 136/75; PULSE 57; RESP 19; TEMP 98; O2SAT 96
--- NOTE | 2025-06-13 06:53 | DVHINCON2 ---
Date of service: Jun 13, 2025 History of Present Illness HPI Patient is a 75-year-old gentleman who originally presented on June 09, 2025 after mechanical fall and hip fracture. He actually had orthopedic surgery (ORIF) on June 11, 2025. On June 13, 2025, we were informed that the patient is in the hospital. Patient is known to our practice from outside. Patient himself called our office and informed us. There has been no chest pain/loss of consciousness/palpitations. Patient does have history of rheumatic fever as a child and valvular heart disease. He also has pulmonary hypertension. Home Meds Reported Medications Carisoprodol (Soma) 350 Mg Tab, 350 MG PO DAILY, TAB 06/11/25 Multiple Vitamin (Multivitamins) Tab, 1 TAB PO DAILY, #90 TAB 3 Refills 06/11/25 Alprazolam (Xanax) 0.5 Mg Tb, 1 TAB PO BID PRN for ANXIETY, #30 TAB 06/11/25 Meclizine Hcl (Meclizine Hcl) 12.5 Mg Tab, 12.5 MG PO BIDP PRN for DIZZINESS for 30 Days, MG 06/11/25 Hydroxyzine Hcl (Hydroxyzine Hcl) 25 Mg Tab, 25 MG PO BID PRN for FOR ITCHING for 30 Days, MG 06/11/25 Past Medical History Others Past medical history includes valvular heart disease, history of rheumatic fever, pulmonary hypertension, hypertension, hyperlipidemia, peripheral artery disease, emphysema/COPD, history of thyroiditis, hypothyroidism, BPH, cataract, varicose vein, anxiety disorder, old history of skin cancer, history of shingles and also meningioma. Patient Family History: FH: ovarian cancer G8 MOTHER Ischemic heart disease G8 FATHER Smoker: Positive Alocohol: None Drugs: Marijuana Lives with: With family Review of Systems Constitutional: No symptom reported Ears, Nose, & Throat: No symptom reported Eyes: No symptom reported Pulmonary/Respiratory: No symptom reported Cardiovascular: No symptom reported All Other Systems Fourteen point review of system was performed. Relevant findings as per above and as per HPI. Otherwise negative. H&P Exam Vital Signs Vital Signs Date Time Temp Pulse Resp B/P (MAP) Pulse Ox O2 Delivery O2 Flow Rate FiO2 06/13/25 04:58 98.0 57 19 136/75 (95) 96 98.0 06/12/25 20:00 Nasal Cannula* 2 28 General Appeara: Well developed Head Exam: Normal inspection Eye Exam: bilateral eye PERRL Pulmonary/Respiratory: Lungs clear Cardiovascular/Chest: Diastolic murmur, Systolic murmur Peripheral Pulses: 2+ carotid (R), 2+ carotid (L), 2+ femoral (R), 2+ femoral (L) Neuro/Mental St: Alert, Oriented Appearance: Appropriate appearance Eye contact/ Speech: Cooperative Labs/Xrays Labs Test 06/10/25 08:26 06/09/25 22:29 06/09/25 21:11 Range/Units Hemoglobin A1c 5.3 <5.7 % A1C B-Type Natriuretic Peptide 113.27 0-100 pg/mL Vitamin B12 Level 860 211-911 pg/mL Vitamin D 25-Hydroxy 42.0 30.0-100 ng/mL Thyroid Stimulating Hormone (TSH) 1.94 0.55-4.78 uIU/mL White Blood Count 11.6 H 4.4-10.8 10^3/uL Red Blood Count 4.22 L 4.5-5.90 10^6/uL Hemoglobin 14.2 13.5-17.5 g/dL Hematocrit 41.9 41.0-53.0 % Mean Corpuscular Volume 99.1 80.0-100.0 fL Mean Corpuscular Hemoglobin 33.6 H 28.0-32.0 pg Mean Corpuscular Hemoglobin Concent 33.9 32.0-36.0 g/dL Red Cell Distribution Width 13.4 11.8-14.3 % Platelet Count 248 140-450 10^3/uL Mean Platelet Volume 6.6 L 6.9-10.8 fL Neutrophils (%) (Auto) 65.0 37.0-80.0 % Lymphocytes (%) (Auto) 24.5 10.0-50.0 % Monocytes (%) (Auto) 8.4 0.0-12.0 % Eosinophils (%) (Auto) 0.9 0.0-7.0 % Basophils (%) (Auto) 1.2 0.0-2.0 % Neutrophils # (Auto) 7.6 1.6-8.6 10 ^3/uL Lymphocytes # (Auto) 2.9 0.4-5.4 10 ^3/uL Monocytes # (Auto) 1.0 0-1.3 10 ^3/uL Eosinophils # (Auto) 0.1 0-0.8 10 ^3/uL Basophils # (Auto) 0.1 0-0.2 10 ^3/uL Nucleated Red Blood Cells 0.0 % Prothrombin Time 11.7 9.3-11.8 sec Prothrombin Time INR 1.12 0.9-1.15 Activated Partial Thromboplast Time 33.9 24.5-34.5 SEC Sodium Level 145 136-145 mmol/L Potassium Level 4.3 3.5-5.1 mmol/L Chloride Level 110 H 98-107 mmol/L Carbon Dioxide Level 25 20-31 mmol/L Anion Gap 10 5-15 Blood Urea Nitrogen 17 9-23 mg/dL Creatinine 1.24 0.700-1.30 mg/dL Glomerular Filtration Rate Calc 60 >90 mL/min BUN/Creatinine Ratio 13.7 10.0-20.0 Serum Glucose 94 74-106 mg/dL Calcium Level 8.9 8.7-10.4 mg/dL Magnesium Level 2.4 1.6-2.6 mg/dL Total Bilirubin 1.0 0.2-1.0 mg/dL Direct Bilirubin 0.3 <0.3 mg/dL Aspartate Amino Transferase (AST) 29 13-40 U/L Alanine Aminotransferase (ALT) 38 7-40 U/L Alkaline Phosphatase 72 46-116 U/L Total Protein 6.8 5.7-8.2 g/dL Albumin 4.1 3.2-4.8 g/dL Urine Color Light-yellow Yellow Urine Clarity Clear Clear Urine pH 6.5 5.0-9.0 Urine Specific [place] 1.009 1.001-1.035 Urine Protein Negative Negative Urine Ketones 2+ H Negative Urine Blood Negative Negative /uL Urine Nitrite Negative Negative Urine Bilirubin Negative Negative Urine Urobilinogen Normal Negative mg/dL Urine Leukocyte Esterase Negative Negative /uL Urine RBC 1 0 - 3 /hpf Urine Microscopic WBC < 1 0-3 /HPF Urine Squamous Epithelial Cells None seen <5 /hpf Urine Bacteria None seen None Seen /hpf Urine Hyaline Casts Few 0 - 2 /lpf Urine Glucose Normal Normal mg/dL Urine Opiates Screen Neg NEGATIVE Urine Fentanyl Screen Neg NEGATIVE Urine Barbiturates Screen Neg NEGATIVE Urine Phencyclidine Screen Neg NEGATIVE Urine Amphetamines Screen Neg NEGATIVE Urine Benzodiazepines Screen Pos NEGATIVE Urine Cocaine Screen Neg NEGATIVE Urine Cannabinoids Screen Pos NEGATIVE Assessment/Plan Plan Patient is a 75-year-old gentleman who originally presented on June 09, 2025 after mechanical fall and hip fracture. He actually had orthopedic surgery (ORIF) on June 11, 2025. On June 13, 2025, we were informed that the patient is in the hospital. Patient is known to our practice from outside. Patient himself called our office and informed us. There has been no chest pain/loss of consciousness/palpitations. Patient does have history of rheumatic fever as a child and valvular heart disease. He also has pulmonary hypertensi on. Not in acute distress. Lying flat in bed. No JVD. Mucosa is pink and wet. No carotid bruit. Lungs are clear to auscultation. Not using accessory muscles of breathing. Cardiac: Regular, no thrill. Systolic murmur and diastolic rumble in the base is heard. Abdomen is soft. Bowel sound is positive. There is no gross mass. There was no gross lateralized neurologic deficit. Past medical history includes valvular heart disease, history of rheumatic fever, pulmonary hypertension, hypertension, hyperlipidemia, peripheral artery disease, emphysema/COPD, history of thyroiditis, hypothyroidism, BPH, cataract, varicose vein, anxiety disorder, old history of skin cancer, history of shingles and also meningioma. Echocardiogram of June 14, 2024 revealed ejection fraction of 65-70%, mild concentric left ventricular hypertrophy, [id number] aortic insufficiency/mitral regurgitation, mild tricuspid regurgitation and right ventricular systolic pressure 43 mm Hg. Nuclear stress test of May 2021 was normal TSH: 1.94 BNP: 113.27 Urine drug test was positive for cannabinoids/benzodiazepine Hip x-ray revealed left femoral neck fracture CT of the head revealed meningioma Echocardiogram of June 10, 2025 revealed ejection fraction of 65%, concentric left ventricular hypertrophy, aortic valve area of 1.1, moderate aortic insufficiency/aortic stenosis Patient is a 75-year-old gentleman who presented after mechanical fall and was found to have hip fracture. He has gone under orthopedic surgery for its correction. Mechanical fall Hip fracture Status post ORIF Valvular heart disease Emphysema COPD Hypothyroidism Hypertension Hyperlipidemia Meningioma, history of (originally diagnosed in [facility]) Cardiac suggestion for management: Manage on telemetry Follow-up electrolytes and kidney function tests and correct abnormalities Cardiac-darnell, the patient can be followed as outpatient Evaluation and management of hip fracture as per Orthopedics Rehab as per orthopedics Further evaluation and management depends on the above and clinical course Thank you for consultation A total of 75 minutes was spent reviewing the patient record, examining the patient, making a diagnostic and therapeutic plan, discussing this plan with medical personnel, following up on diagnostic studies and following the patient for clinical stability excluding any and all procedures. At least 50% of this time was spent in direct, [id number] contact. Thank you for allowing me to participate in this patient's care. Further recommendations will depend on patient's clinical course. Please do not hesitate to contact me if you have any questions or concerns. This medical document was created using electronic medical record system with [employer] computerized dictation system. Although this document has been carefully reviewed, there may still be some phonetic and typographical errors. These areas are purely typographical due to the imperfection of the software programs, and do not reflect any compromise in the patient's medical care. Plan discussed with: Patient, Other (nurse) ROHAN MARRERO MD Jun 13, 2025 06:53
[2025-06-13 08:00] VITALS: PULSE 58
[2025-06-13 08:42] VITALS: BP 144/80; PULSE 60; RESP 17; TEMP 99.2; O2SAT 99
[2025-06-13 09:55] VITALS: TEMP 37.3
[2025-06-13] MEDS: Juven Orange Powder PACKET 27.5gm PO SCH (10:12)
--- NOTE | 2025-06-13 15:02 | DVHDSRES ---
Discharge Summary Date of Admission Resident Creating Document: NAYE LOVETT RESIDENT Jun 09, 2025 at 21:45 Date of Discharge: Jun 13, 2025 Admitting Diagnosis #Acute left femoral fracture # Acute Intractable hip pain due acute impacted subcapital fracture of the left femur. #Ruled out acute mild traumatic brain injury, likely concussion Wounds: No wound on admission Labs/Diagnostic Data: Laboratory Results Test 06/10/25 08:26 06/09/25 22:29 06/09/25 21:11 Hemoglobin A1c 5.3 % A1C (<5.7) B-Type Natriuretic Peptide 113.27 pg/mL (0-100) Vitamin B12 Level 860 pg/mL (211-911) Vitamin D 25-Hydroxy 42.0 ng/mL (30.0-100) Thyroid Stimulating Hormone (TSH) 1.94 uIU/mL (0.55-4.78) White Blood Count 11.6 10^3/uL (4.4-10.8) Red Blood Count 4.22 10^6/uL (4.5-5.90) Hemoglobin 14.2 g/dL (13.5-17.5) Hematocrit 41.9 % (41.0-53.0) Mean Corpuscular Volume 99.1 fL (80.0-100.0) Mean Corpuscular Hemoglobin 33.6 pg (28.0-32.0) Mean Corpuscular Hemoglobin Concent 33.9 g/dL (32.0-36.0) Red Cell Distribution Width 13.4 % (11.8-14.3) Platelet Count 248 10^3/uL (140-450) Mean Platelet Volume 6.6 fL (6.9-10.8) Neutrophils (%) (Auto) 65.0 % (37.0-80.0) Lymphocytes (%) (Auto) 24.5 % (10.0-50.0) Monocytes (%) (Auto) 8.4 % (0.0-12.0) Eosinophils (%) (Auto) 0.9 % (0.0-7.0) Basophils (%) (Auto) 1.2 % (0.0-2.0) Neutrophils # (Auto) 7.6 10 ^3/uL (1.6-8.6) Lymphocytes # (Auto) 2.9 10 ^3/uL (0.4-5.4) Monocytes # (Auto) 1.0 10 ^3/uL (0-1.3) Eosinophils # (Auto) 0.1 10 ^3/uL (0-0.8) Basophils # (Auto) 0.1 10 ^3/uL (0-0.2) Nucleated Red Blood Cells 0.0 % Prothrombin Time 11.7 sec (9.3-11.8) Prothrombin Time INR 1.12 (0.9-1.15) Activated Partial Thromboplast Time 33.9 SEC (24.5-34.5) Sodium Level 145 mmol/L (136-145) Potassium Level 4.3 mmol/L (3.5-5.1) Chloride Level 110 mmol/L (98-107) Carbon Dioxide Level 25 mmol/L (20-31) Anion Gap 10 (5-15) Blood Urea Nitrogen 17 mg/dL (9-23) Creatinine 1.24 mg/dL (0.700-1.30) Glomerular Filtration Rate Calc 60 mL/min (>90) BUN/Creatinine Ratio 13.7 (10.0-20.0) Serum Glucose 94 mg/dL (74-106) Calcium Level 8.9 mg/dL (8.7-10.4) Magnesium Level 2.4 mg/dL (1.6-2.6) Total Bilirubin 1.0 mg/dL (0.2-1.0) Direct Bilirubin 0.3 mg/dL (<0.3) Aspartate Amino Transferase (AST) 29 U/L (13-40) Alanine Aminotransferase (ALT) 38 U/L (7-40) Alkaline Phosphatase 72 U/L (46-116) Total Protein 6.8 g/dL (5.7-8.2) Albumin 4.1 g/dL (3.2-4.8) Urine Color Light-yellow (Yellow) Urine Clarity Clear (Clear) Urine pH 6.5 (5.0-9.0) Urine Specific [place] 1.009 (1.001-1.035) Urine Protein Negative (Negative) Urine Ketones 2+ (Negative) Urine Blood Negative /uL (Negative) Urine Nitrite Negative (Negative) Urine Bilirubin Negative (Negative) Urine Urobilinogen Normal mg/dL (Negative) Urine Leukocyte Esterase Negative /uL (Negative) Urine RBC 1 /hpf (0 - 3) Urine Microscopic WBC < 1 /HPF (0-3) Urine Squamous Epithelial Cells None seen /hpf (<5) Urine Bacteria None seen /hpf (None Seen) Urine Hyaline Casts Few /lpf (0 - 2) Urine Glucose Normal mg/dL (Normal) Urine Opiates Screen Neg (NEGATIVE) Urine Fentanyl Screen Neg (NEGATIVE) Urine Barbiturates Screen Neg (NEGATIVE) Urine Phencyclidine Screen Neg (NEGATIVE) Urine Amphetamines Screen Neg (NEGATIVE) Urine Benzodiazepines Screen Pos (NEGATIVE) Urine Cocaine Screen Neg (NEGATIVE) Urine Cannabinoids Screen Pos (NEGATIVE) Other Laboratory Tests 06/09/25 22:29 Brief Hx & Hospital Course: Hitesh Quiroz is a 75-year-old male, with past medical history of vertigo, bradycardia, meningioma (diagnosed at [facility] ) and hyperlipidemia. The patient presented to [facility] ED with the complaint of 1 day of a ground level fall and left hip injury. 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 This prompted her visit to the ED. The patient denies lost of conciseness, trauma to other part of his body, nausea, vomit, chest pain, headache, abdominal pain or other symptom. On further questioning, he reports a recent history of a prior injury to the same leg after a mechanical ground level fall, admit to [facility] for where he had been undergoing physical therapy. After contacting his physical therapist, he was advised to come to the ED for evaluation of a possible fracture. On evaluation in the ED, patient is afebrile, blood pressure is 148/76 mmHg. Hip X-ray shows acute impacted subcapital fracture of the left femur. The patient was placed NPO, started on pain management and IV fluids. Patient was admitted for further evaluation and management. Past Medical History: Vertigo, bradycardia, hyperlipidemia, meningioma (diagnosed at [facility]) Past Surgical History: None, Family History: None Social History: Smoke: No. Alcohol: none. Drugs: None Hospital course: during his hospital stay at [facility] the patient was evaluated and assessed as follow: On 06/10/25, the patient was examined and evaluated at the bedside, vital signs, labs, and chart were reviewed. The patient reported feeling pain in the left hip the pain 10/10, that reduced only with analgesia to 9/10, it was worse with movements. The left Hip CT scan showed: Impacted fracture of the mid left femoral neck with fracture line extending into the subcapital left femoral neck. Coxa vera angulation of the proximal left femur. Very mild soft tissue swelling about the proximal left femur. Orthopedic team is on board, they recommend surgical management as follow: operative perc pinning fixation versus arthroplasty. Planned procedures: Percutaneous pinning versus hemiarthroplasty versus total hip arthroplasty (pending CT findings and intraoperative assessment). Surgery scheduled for 06/11/25 for that the patient started NPO at midnight. On 06/11/25, the patient was examined and evaluated at the bedside, vital signs, labs, and chart were reviewed. Vital signs are within normal limits, labs were grossly unremarkable. The patient went to surgery on 06/11/25, external percutaneous pinning of the left femoral neck fracture was performed. The patient came back from the operating room alert and stable, he reported pain 9/10, specially with movement. A new consult for PT evaluation was placed for SNF, but the patient reported he does not wanted to go to SNF due to he lost her mother and sister in one and he has a bad memories about it. Also, he needs to take care of his pets. He prefers home-health for physical therapy. I explained to the benefits of SNF and the importance to avoid the risk of a new fall; the patient agree to understand, but refused SNF placement option. A new PT consult was placed for home-health for PT. On 06/12/25, the patient was examined and evaluated at the bedside, vital signs, labs, and chart was reviewed. vital signs are within normal limits, labs are unremarkable. The patient on his 1st day post percutaneous pinning of the left femoral neck fracture. The patient reports pain 7/10, specially with movements. The PT consult recommended Home Health for PT. On 06/13/25, the patient was examined and evaluated at the bedside, vital signs, labs, and chart was reviewed. vital signs are within normal limits, labs are unremarkable. The patient on his 2nd day post percutaneous pinning of the left femoral neck fracture. The patient reports pain 7/10, specially with movements. The PT consult recommended Home Health for PT was completed. Orthopedic team clear the patient for discharge. Due to significant improvement the patient will be discharge home with home [facility] for PT. The patient will follow up with orthopedics in 2 weeks and with PCP in 1 week. Review of Systems Eyes: No Pain, No Vision change, No Conjunctivae inflammation, No Eyelid inflammation, No Other, No Redness ENT: No Ear pain, No Ear discharge, No Nose pain, No Nose discharge, No Nose congestion, No Mouth pain, No Mouth swelling, No Throat pain, No Throat swelling, No Other Cardiovascular: No Chest Pain, No Palpitations, No Orthopnea, No Paroxysmal No Dyspnea, No Edema, No Lt Headedness, No Other Respiratory: No Cough, No Dry, No Shortness of breath, No SOB with exertion, No Wheezing, No Hemoptysis, No Pleuritic Pain, No Sputum, No Other Gastrointestinal: No Nausea, No Vomiting, No Abdominal Pain, No Diarrhea, No Constipation, No Melena, No Hematochezia, No Other Genitourinary: No Dysuria, No Frequency, No Incontinence, No Hematuria, No Retention, No Other Musculoskeletal: No other, No neck pain, No shoulder pain, No arm pain, No back pain, No hand pain, hip pain and leg pain improving, No foot pain Skin: No Rash, No Lesions, No Jaundice, No Bruising, No Other Physical exam General Appearance: In mild distress. Cooperative. Well developed. Well nourished. Head Exam: Normal inspection, no lesions or open wounds. Neck Exam: Normal inspection. Non-tender. Normal alignment Pulmonary/Respiratory: Chest non-tender. Clear bilateral breath sounds, no crackles, no wheezing. Cardiovascular/Chest: Regular rate and rhythm. No murmurs. No JVD. Peripheral Pulses: 2+ Radial (R). 2+ Radial (L). 2+ Pedal (R). 2+ Pedal (L) Abdominal Exam: Normal bowel sounds. Soft. normal abdomen, no visible veins, Nontender. No hepatospenomegaly. No masses Ankle Exam: Negative ankle edema Lower extremities: Negative lower extremity edema. Musculoskeletal: Post surgical dressing, Left hip with localized tenderness, reduced ROM due to pain, no leg miss-alignment. No gross deformity noted. Neuro/Mental Status: A&O x3. Coherent. Thoughts/Psych: Normal thought pattern. Appropriate mood and affect. Skin Exam: Normal inspection. Normal color. Warm. Dry Condition at Discharge: Stable Final Diagnosis/Problems List #Acute left femoral fracture #Acute Intractable hip pain due acute impacted subcapital fracture of the left femur. #Acute mild traumatic brain injury, likely concussion #Hx of Meningioma (diagnosed at [facility]) #Chronic positional paroxysmal vertigo #Chronic cannabis usage Discharge Disposition: Home with Health Services ([facility] for PT) SNF Discharge Will this Physician continue t: No Discharge Instruct/Medications Diet: Regular Activity: No Restrictions, As Tolerated Activity comment: Follow up PT recommendations Follow Up/Referral: F/U with PCP in one week F/U with Orthopedics in one week Medications: per EMR Scheduled Carisoprodol (Soma), 350 MG PO DAILY, (Reported) Multiple Vitamin (Multivitamins), 1 TAB PO DAILY, (Reported) Scheduled PRN Alprazolam (Xanax), 1 TAB PO BID PRN for ANXIETY, (Reported) Hydroxyzine Hcl (Hydroxyzine Hcl), 25 MG PO BID PRN for FOR ITCHING, (Reported) Meclizine Hcl (Meclizine Hcl), 12.5 MG PO BIDP PRN for DIZZINESS, (Reported) Discharge Statement: "Patient was advised to return to the ER or call 911 if any headaches, dizziness, shortness of breath, chest pain, abdominal pain, bleeding, fevers, or worsening of medical condition. Patient was counseled about treatment plan, medications, possible side effects, patientverbalized understanding. All questions were answered to the best of my ability. This discharge took greater then 30 minutes in planning, reviewing documentation, counseling the patient, and discussing with other team members." ASSESSMENT ASSESSMENT Assessment #Acute left femoral fracture #Acute Intractable hip pain due acute impacted subcapital fracture of the left femur. #Acute mild traumatic brain injury, likely concussion #Hx of Meningioma (diagnosed at [facility]) #Chronic positional paroxysmal vertigo #Chronic cannabis usage Goals of care discussed with the patient for more than 35 minutes Code Status: Full code PCP: Case discussed with Dr. Garza Date of Service: Jun 13, 2025 Billing Provider: JESSICA GARZA MD Common Visit Codes: 33634-KZP/OBS DISCH DAY >30min NAYE LOVETT RESIDENT Jun 13, 2025 15:02
[2025-06-13] MEDS ORDERED: TRAM-626 PO (18:08)
== END 2025-06-13 12:25 | disposition home health service (06) | DRG 482 ==
LOC: ER 15:08 → OVERFLOW 21:45 → TELE-WESTW 06-10 15:41 → OVERFLOW 06-10 15:41 → TELE-WESTW 06-10 23:39 → WEST WING 06-10 23:39 → OVERFLOW 06-11 09:09 → WEST WING 06-11 09:09 → OVERFLOW 06-11 09:20 → TELE-WESTW 06-11 12:47 → WEST WING 06-13 01:32
PROVIDERS: ADMIT Internal Medicine; ATTEND Internal Medicine
PROC: 0QS734Z Reposition Left Upper Femur with Internal Fixation Device, Percutaneous Approach (ICD-10-PCS; principal; 2025-06-11 08:27)
DX: S72.012A Unspecified intracapsular fracture of left femur, initial encounter for closed fracture (principal); I16.0 Hypertensive urgency; I27.20 Pulmonary hypertension, unspecified; J43.9 Emphysema, unspecified; E03.9 Hypothyroidism, unspecified; I73.9 Peripheral vascular disease, unspecified; F41.9 Anxiety disorder, unspecified; E78.5 Hyperlipidemia, unspecified; S06.0X0A Concussion without loss of consciousness, initial encounter; N40.0 Benign prostatic hyperplasia without lower urinary tract symptoms; Z85.828 Personal history of other malignant neoplasm of skin; Z86.19 Personal history of other infectious and parasitic diseases; I10 Essential (primary) hypertension; W18.39XA Other fall on same level, initial encounter; Y93.89 Activity, other specified; Y99.8 Other external cause status; Y92.89 Other specified places as the place of occurrence of the external cause
CPT/HCPCS: 36415; 70450; 71045; 73502; 73700; 76000; 80053; 80076; 80307; 81001; 82306; 82607; 83036; 83735; 83880; 84443; 85025; 85610; 85730; 86850; 86900; 86901; 93005; 93306; 96361; 96374; 96375; 97110; 97163; 97530; G0378; J0169; J2405; J2704; J3490